=== PATIENT | male | born 1965 | race Two or more races ===

== ENCOUNTER → 2018-04-16 | Day surgery (SDC) | payer OTHER ==
[~2018-04-16] VITALS: Ht 170.2 cm; Wt 57.2 kg
[~2018-04-16] MED LIST: ALLO-119 PO; LEVO25TA61 PO; LEVO50TA86 PO; LIDOCAINE/SOD BICARB 8.4% SYR ID ONE; LISI-362 PO; METF-421 PO; NORMOSOL R SOLN(*) 1000 ML BAG 1,000 ML IV PRN; PROPOFOL EMUL(*) 10MG/ML 20 ML 20 ML ONE
[2018-04-16 08:18] VITALS: BP 121/87
[2018-04-16 10:02] VITALS: BP 98/72
--- NOTE | 2018-04-16 10:07 | Short(Outpt) Discharge Summary ---
Discharge Summary Reason for Hosp/Final Diag: (1) Colon cancer screening Status: Chronic Hospital Course & Plan: Colonoscopy completed without any problems; normal. Departure Discharge to: Home, Self Care Discharge Instructions Home Meds Reported Medications Levothyroxine Sodium (LEVOTHYROXINE SODIUM) 25 Mcg Tablet, 50 MCG PO QDAY 04/05/18 Allopurinol (ZYLOPRIM) 300 Mg Tablet, 300 MG PO QDAY, TAB 03/27/18 Metformin Hcl (METFORMIN HCL) 1,000 Mg Tablet, 1 TAB PO BID, TAB 03/27/18 Lisinopril (LISINOPRIL) 10 Mg Tablet, 5 MG PO QDAY, TAB 03/27/18 Diet: Regular Activity: As Tolerated Special Instructions: Your colonoscopy was completed without any problems and your prep was excellent (Good Job!!). I didn't find any polyps, cancers or any other abnormalities; it was completely normal. I recommend that your next colonoscopy be in 10 years for screening. WILLIE PRUETT MD Apr 16, 2018 10:07
[2018-04-16 10:21] VITALS: BP 104/72
[2018-04-16 10:44] VITALS: BP 91/67
[2018-04-16 10:45] VITALS: BP 94/69
== END ==
LOC: OR 02:06
PROVIDERS: ATTEND Surgery
DX: Z12.11 Encounter for screening for malignant neoplasm of colon (principal); I10 Essential (primary) hypertension; E11.9 Type 2 diabetes mellitus without complications; E03.9 Hypothyroidism, unspecified
CPT/HCPCS: 00812; 36416; 45378; 82948; J2704